=== PATIENT | male | born 1955 | race Caucasian/White ===

== ENCOUNTER 2020-08-26 10:38 | Emergency (ER) | payer OTHER ==
[~2020-08-26] VITALS: Ht 172.7 cm; Wt 81.7 kg
[2020-08-26 11:22] LABS: ABSOLUTE BASOPHILS 0.1 thou/uL (0.0-0.2); ABSOLUTE EOSINOPHILS 0.2 thou/uL (0.0-0.7); ABSOLUTE LYMPHOCYTES 3.9 thou/uL (0.8-5.3); ABSOLUTE MONOCYTES 1.3 thou/uL (0.0-1.2); ABSOLUTE NEUTROPHILS 6.1 thou/uL (1.6-8.1); BASOPHILS 1.1 %; EOSINOPHILS 2.1 %; HEMATOCRIT 46.7 % (42.0-52.0); LYMPHOCYTES 33.6 %; MCH 31.1 pg (26.0-34.0); MCHC 34.2 g/dL (28.0-37.0); MCV 90.9 fL (80.0-100.0); MONOCYTES 11.3 %; MPV 8.9 fl. (7.2-11.1); NUCLEATED RBCS 0 /100WBC; PLATELET COUNT* 277 thou/uL (150-400); POLYS 51.9 %; RBC 5.13 mil/uL (4.50-6.00); RDW-CV 13.2 % (10.5-14.5); WBC 11.7 thou/uL (4.0-11.0)
[2020-08-26 11:32] LABS: CALCIUM 8.7 mg/dL (8.5-10.1); POTASSIUM 4.7 mmol/L (3.5-5.1)
[2020-08-26 11:43] LABS: ALBUMIN 3.6 g/dL (3.4-5.0); MAGNESIUM 2.1 mg/dL (1.8-2.4); TOTAL BILIRUBIN 0.4 mg/dL (<0.1-1.0); TOTAL PROTEIN 7.2 g/dL (6.4-8.2)
[2020-08-26] MEDS ORDERED: ACYCLOVIR 800800 MG PO (13:17)
[2020-08-26] MEDS ORDERED: PREDNISONE 10 M10 M1 PO (13:17)
[2020-08-26] MEDS ORDERED: HYDROCODON-ACE1 EAC7 PO (13:17)
[2020-08-26] MEDS ORDERED: IBUPROFEN 800800 M1 PO (13:17)
[2020-08-26 13:35] VITALS: BP 131/77
--- NOTE | 2020-08-26 14:51 | EKG ---
[place] [address] ELECTROCARDIOGRAM REPORT Name: SELINA WILSON Room: [facility]#: [id number] Admission: 08/26/20 Attend Phys: Discharge: 08/26/20 Date of : 57 Date of Service: 08/26/20 1042 Report #: [id number] THIS REPORT FOR: //name// [facility] ED Test Date: 2020-08-26 Test Time: 10:42:11 Pat Name: SELINA WILSON Department: Room: Gender: Servicenow Administrator: : 1955 Requested By: Zhou Ruiz Order Number: [id number] MD: Aron Márquez Measurements Intervals [place] Rate: 60 P: 44 [place]: 162 QRS: 5 QRSD: 91 T: -22 QT: 404 QTc: 404 Interpretive Statements Sinus rhythm Low voltage, precordial leads Borderline T abnormalities, inferior leads No previous ECG available for comparison Electronically Signed On 08-26-2020 14:51:20 CDT by Aron Márquez [email or web address] <ELECTRONICALLY SIGNED> By: Aron Márquez MD, [facility] 08/26/20 1451 1042 1042 Aron Márquez MD, [facility] /EPI
--- NOTE | 2020-08-26 14:52 | EKG ---
[place] [address] ELECTROCARDIOGRAM REPORT Name: SELINA WILSON Room: [facility]#: [id number] Admission: 08/26/20 Attend Phys: Discharge: 08/26/20 Date of : 57 Date of Service: 08/26/20 1256 Report #: [id number] THIS REPORT FOR: //name// [facility] ED Test Date: 2020-08-26 Test Time: 12:56:47 Pat Name: SELINA WILSON Department: Room: Gender: Lead Driver: TDS : 1955 Requested By: Zhou Ruiz Order Number: [id number] MD: Aron Márquez Measurements Intervals [place] Rate: 55 P: 30 NM: 162 QRS: -8 QRSD: 99 T: -19 QT: 417 QTc: 399 Interpretive Statements Sinus bradycardia Low voltage, precordial leads Borderline T abnormalities, inferior leads Compared to ECG 08/26/2020 10:42:11 No significant changes Electronically Signed On 08-26-2020 14:52:16 CDT by Aron Márquez [email or web address] <ELECTRONICALLY SIGNED> By: Aron Márquez MD, [facility] 08/26/20 1452 1256 1256 Aron Márquez MD, [facility] /EPI
== END 2020-08-26 13:53 | disposition home or self-care (01) ==
LOC: M.ERS 10:38
PROVIDERS: Emergency Medicine Emergency Medical Services
DX: B02.9 Zoster without complications (principal); F12.90 Cannabis use, unspecified, uncomplicated; Z90.89 Acquired absence of other organs